=== PATIENT | male | born 1930 | race Two or more races ===

== ENCOUNTER 2019-04-24 05:27 | Day surgery (SDC) | payer OTHER ==
[~2019-04-24 05:27] MED LIST: AMLODIPINE BESY10 MG PO; FINASTERIDE PO; GABAPENTIN100 MG PO; SYNTHROID125 MCG PO; TOPROL XL50 M1 PO; [UNRECOGNIZED DRUG - OTHER] PO
== END 2019-04-24 15:05 | disposition home or self-care (01) ==
LOC: CIR.AMB 05:27
DX: C67.3 Malignant neoplasm of anterior wall of bladder (principal); C67.4 Malignant neoplasm of posterior wall of bladder

== ENCOUNTER 2019-06-19 05:05 | Day surgery (SDC) | payer OTHER ==
[~2019-06-19 05:05] MED LIST changes: +PLAVIX75 MG PO; +PROSCAR5 MG PO; +[UNRECOGNIZED DRUG - OTHER] PO
== END 2019-06-19 13:30 | disposition home or self-care (01) ==
LOC: CIR.AMB 05:05
DX: C67.1 Malignant neoplasm of dome of bladder (principal); C67.5 Malignant neoplasm of bladder neck